=== PATIENT | male | born 1975 | race Caucasian/White ===

== ENCOUNTER 2018-01-30 05:40 | Day surgery (SDC) | payer OTHER ==
[~2018-01-30] VITALS: Ht 182.9 cm; Wt 119.0 kg
[2018-01-30 06:33] VITALS: BP 124/79
[2018-01-30] MEDS ORDERED: GENTAMICIN 80 MG/2 ML ONE ×2 (06:39→06:40)
[2018-01-30] MEDS ORDERED: LACTATED RINGERS 1,000 ML IV SCH (06:45)
[2018-01-30] MEDS ORDERED: MIDAZOLAM 1 MG/ML, 2ML ONE (06:47)
[2018-01-30] MEDS ORDERED: FENTANYL PF 250 MCG/5ML ONE (06:48)
[2018-01-30] MEDS ORDERED: PROPOFOL 10 MG/ML, 20ML ONE (06:49)
[2018-01-30] MEDS ORDERED: ROCURONIUM 10MG/ML,5ML ONE ×2 (06:50→10:17)
[2018-01-30] MEDS ORDERED: GLYCOPYRROLATE 0.4 MG/2 ML, 2ML ONE (06:50)
[2018-01-30] MEDS ORDERED: NEOSTIGMINE 1 MG/ML, 10ML ONE (06:50)
[2018-01-30] MEDS ORDERED: SODIUM CHLORIDE 0.9% PF 10ML ONE (06:51)
[2018-01-30] MEDS ORDERED: CEFAZOLIN 1,000 MG ONE ×3 (06:51→09:54)
[2018-01-30] MEDS ORDERED: GABA600T2 PO (06:55)
[2018-01-30] MEDS ORDERED: ALLO300T PO (06:55)
[2018-01-30] MEDS ORDERED: LEVO100T PO (06:55)
[2018-01-30] MEDS ORDERED: CELE400C PO (06:55)
[2018-01-30] MEDS ORDERED: GABAPENTIN 300 MG CAPSULE PO ONE (07:00)
[2018-01-30] MEDS ORDERED: OxyconTIN ER 20 MG TAB.ER PO ONE (07:00)
[2018-01-30] MEDS ORDERED: ACETAMINOPHEN 500 MG TABLET PO ONE (07:00)
[2018-01-30] MEDS ORDERED: morphine SULFATE/PF 1 MG/ML, 10ML ONE (07:06)
[2018-01-30] MEDS ORDERED: THROMBIN 5,000 UNIT VIAL TP ONE (07:06)
[2018-01-30] MEDS ORDERED: BUPIVACAINE/PF-EPI 0.5% 1:200K ONE (07:06)
[2018-01-30] MEDS ORDERED: VANCOMYCIN 1,000 MG ONE (07:07)
[2018-01-30] MEDS ORDERED: FENTANYL PF 100 MCG/2ML ONE ×2 (07:07→11:56)
[2018-01-30] MEDS ORDERED: LIDOCAINE 1%-EPI 1:100K, 30ML ONE (07:07)
[2018-01-30] MEDS ORDERED: ONDANSETRON ODT 8 MG PO PRN (07:30)
[2018-01-30] MEDS ORDERED: FENTANYL PF 100 MCG/2ML IV PRN (07:30)
[2018-01-30] MEDS ORDERED: ACETAMINOPHEN 325 MG TABLET PO PRN (07:30)
[2018-01-30] MEDS ORDERED: HYDROmorphone 1 MG/ML, 1ML IV PRN (07:30)
[2018-01-30] MEDS ORDERED: PROMETHAZINE 25 MG/ML, 1ML IV PRN (07:30)
[2018-01-30] MEDS ORDERED: LABETALOL 5MG/ML, 20ML IV PRN (07:30)
[2018-01-30] MEDS ORDERED: PROMETHAZINE 25 MG/ML, 1ML IM PRN ×2 (07:30)
[2018-01-30] MEDS ORDERED: PROMETHAZINE 25 MG SUPP PR PRN (07:30)
[2018-01-30] MEDS ORDERED: PROMETHAZINE 12.5 MG SUPP PR PRN (07:30)
[2018-01-30] MEDS ORDERED: MEPERIDINE/PF 25MG/0.5ML IVPush PRN (07:30)
[2018-01-30] MEDS ORDERED: OXYcodone 5 MG/5 ML ORAL.SOL UDC PO PRN (07:30)
[2018-01-30] MEDS ORDERED: hydrALAzine 20 MG/ML, 1ML IV PRN (07:30)
[2018-01-30] MEDS ORDERED: ONDANSETRON 2MG/ML, 2ML IV PRN (07:30)
[2018-01-30] MEDS ORDERED: MORPHINE SULFATE 4 MG/ML, 1ML IVPush PRN (07:30)
[2018-01-30] MEDS ORDERED: BUPIVACAINE 0.25% ONE ×4 (10:26→12:33)
[2018-01-30] MEDS ORDERED: ONDANSETRON 2MG/ML, 2ML ONE (13:23)
[2018-01-30] MEDS ORDERED: HYDROcodone/APAP 10/325 MG TABLET PO PRN (18:00)
[2018-01-30] MEDS ORDERED: PHARMACY MAY ADJ FOR RENAL FX MC PRN (18:00)
[2018-01-30] MEDS ORDERED: CEFAZOLIN PMX 1GM/50ML 50 ML IVPB SCH (18:00)
[2018-01-30] MEDS ORDERED: DIAZEPAM 5 MG TABLET PO PRN (18:00)
== END 2018-01-30 18:25 | disposition home or self-care (01) ==
LOC: OUT 05:40
PROVIDERS: ATTEND Orthopaedic Surgery Orthopaedic Surgery of the Spine
DX: M51.16 Intervertebral disc disorders with radiculopathy, lumbar region (principal); E03.9 Hypothyroidism, unspecified; M10.9 Gout, unspecified; E78.5 Hyperlipidemia, unspecified; Z98.890 Other specified postprocedural states; Z88.1 Allergy status to other antibiotic agents
CPT/HCPCS: 63030; 63035; 72100; J0690; J1580; J2250; J2405; J2704; J2710; J3010; J3490; J7120; J2274; J3370